=== PATIENT | female | born 1995 | race Caucasian/White ===

== ENCOUNTER 2019-02-19 01:46 | Observation (INO) ==
[~2019-02-19 01:46] MED LIST: *HR* HYDROmorphone (PF) 1 MG/ML SYRINGE IVP ONE; Acetaminophen 325 MG TABLET PO SCH; Ibuprofen 600 MG TABLET PO ONE; Ibuprofen 600 MG TABLET PO SCH; Oxytocin 20 units/ LR 1000 mL 20 UNIT/1,000 ML BAG IVC ONE; Oxytocin 20 units/ LR 1000 mL 20 UNIT/1,000 ML BAG IVC SCH; Rho Immune Globulin 1,500 UNIT SYRINGE IM PRN
[2019-02-19 04:11] VITALS: BP 126/79
[2019-02-19] MEDS ORDERED: Prenatal Vit/FA 1 EACH TABLET PO SCH (09:00)
[2019-02-19] MEDS ORDERED: miSOPROStoL 100 MCG TABLET PO ONE (11:57)
== END 2019-02-19 11:58 | disposition home or self-care (01) | DRG 806 ==
LOC: 1NENULAB → 1NENUOBS 01:46
PROVIDERS: ADMIT Registered Nurse; ATTEND Registered Nurse